=== PATIENT | male | born 1990 | race Two or more races ===

== ENCOUNTER 2020-12-07 14:03 | Emergency (ER) | payer SELFPAY ==
[~2020-12-07] VITALS: Ht 170.2 cm; Wt 108.9 kg
[2020-12-07] MEDS ORDERED: ONDANSETRON HCL 4 MG/2 ML VIAL IV ONE (14:30)
[2020-12-07] MEDS ORDERED: MORPHINE SULFATE 4 MG/ML SYR/VIAL IV ONE (14:30)
[2020-12-07] MEDS ORDERED: HYDROmorphone HCL 2 MG/ML VL IV ONE (16:00)
[2020-12-07 16:17] LABS: Hematocrit 52.8 % (41.0-53.0); Hemoglobin 17.7 g/dL (13.5-17.5); Mean Corpuscular Hemoglobin 30.6 pg (28.0-32.0); Mean Corpuscular Hgb Conc. 33.5 g/dL (32.0-36.0); Mean Corpuscular Volume 91.3 fL (80.0-100.0); Platelet Count (auto) 268 10^3/uL (140-450); Red Blood Cells 5.78 10^6/uL (4.5-5.90); Red Cell Distribution Width 13.6 % (11.8-14.3); White Blood Cell 28.7 10^3/uL (4.4-10.8)
[2020-12-07 16:20] LABS: Basophils % (manual) 0 (0.0-2.0); Blast Cells 0; Eosinophils % (manual) 0 (0-7); Metamyelocytes % 0; Myelocytes % 0; Promyelocytes % 0; Reactive Lymphocytes 0
[2020-12-07 16:33] LABS: Albumin 3.8 g/dL (3.4-5.0); Calcium 8.3 mg/dL (8.5-10.1); Potassium 4.9 mmol/L (3.5-5.1)
[2020-12-07 16:34] LABS: INR 1.04 (0.9-1.15); Partial Thromboplastin Time 23.6 sec (23.0-31.2)
[2020-12-07 16:37] LABS: BUN/Creatinine Ratio 9.6; Bilirubin, Total 1.5 mg/dL (0.2-1.0); Total Protein 7.3 g/dL (6.4-8.2)
[2020-12-07 16:41] VITALS: BP 127/80
[2020-12-07 16:46] LABS: Band Neutrophils % (manual) 13; Lymphocytes % (manual) 6 (10.0-50.0); Monocytes % (manual) 7 (0-12)
== END 2020-12-07 16:59 | disposition short-term general hospital (02) ==
LOC: ER 14:03 → EDBD 14:03 → ER 16:59
DX: S32.10XA Unspecified fracture of sacrum, initial encounter for closed fracture (principal); S32.9XXA Fracture of unspecified parts of lumbosacral spine and pelvis, initial encounter for closed fracture; S62.101A Fracture of unspecified carpal bone, right wrist, initial encounter for closed fracture; S30.0XXA Contusion of lower back and pelvis, initial encounter; V29.9XXA Motorcycle rider (driver) (passenger) injured in unspecified traffic accident, initial encounter; Y93.89 Activity, other specified; Y92.89 Other specified places as the place of occurrence of the external cause; Y99.8 Other external cause status
CPT/HCPCS: 36415; 70450; 71250; 72125; 72192; 73110; 74176; 80053; 85007; 85027; 85610; 85730; 96374; 96375; 99285; J1170; J2270; J2405

== ENCOUNTER 2023-11-07 19:46 | Emergency (ER) | payer MEDICAID ==
[~2023-11-07] VITALS: Ht 180.3 cm; Wt 129.0 kg
[2023-11-07] MEDS ORDERED: CEPH500C PO (21:59)
[2023-11-07] MEDS ORDERED: CLIN1CAP70 PO (21:59)
[2023-11-07] MEDS ORDERED: IBUP-1456 PO (21:59)
[2023-11-07 22:00] VITALS: BP 140/75; PULSE 100; RESP 16; TEMP 98; O2SAT 98
[2023-11-07] MEDS: methylPREDNISolone SOD SUCC 125 MG/2 ML VL IV ONE (22:19)
[2023-11-07] MEDS: KETOROLAC TROMETH 30 MG/ML 1ML VIAL IV ONE (22:19)
[2023-11-07] MEDS: cefTRIAXone 1GM/50ML D5W 50 ML IV ONE (22:28)
[2023-11-07] MEDS: CLINDAMYCIN 900MG IV 50 ML IV ONE (22:46)
== END 2023-11-07 23:23 | disposition home or self-care (01) ==
LOC: ER 19:46
DX: L03.012 Cellulitis of left finger (principal); Z90.49 Acquired absence of other specified parts of digestive tract; Z79.1 Long term (current) use of non-steroidal anti-inflammatories (NSAID); Z79.2 Long term (current) use of antibiotics; Z79.899 Other long term (current) drug therapy
CPT/HCPCS: 73130; 96365; 96367; 96375; 99284; J0696; J1885; J2930; J3490

== ENCOUNTER 2024-04-16 20:34 | Emergency (ER) | payer MEDICAID ==
[~2024-04-16] VITALS: Ht 180.3 cm; Wt 112.7 kg
[~2024-04-16 20:34] MED LIST: CEPH500C PO; CLIN1CAP70 PO; IBUP-1456 PO
[2024-04-16] MEDS ORDERED: CLIN1CAP70 PO (22:15)
[2024-04-16] MEDS ORDERED: IBUP-1455 PO (22:15)
[2024-04-16 23:06] VITALS: BP 142/99; PULSE 97; RESP 14; TEMP 97.8; O2SAT 95
== END 2024-04-16 23:08 | disposition home or self-care (01) ==
LOC: ER 20:34
DX: L08.89 Other specified local infections of the skin and subcutaneous tissue (principal); B95.8 Unspecified staphylococcus as the cause of diseases classified elsewhere; F15.90 Other stimulant use, unspecified, uncomplicated; Z98.890 Other specified postprocedural states; Z79.899 Other long term (current) drug therapy

== ENCOUNTER 2024-08-04 16:03 | Emergency (ER) | payer MEDICAID ==
[~2024-08-04] VITALS: Ht 180.3 cm; Wt 113.2 kg
[~2024-08-04 16:03] MED LIST changes: +IBUP-1455 PO
[2024-08-04 17:24] LABS: Urine Bacteria None Seen /hpf (None Seen)
--- NOTE | 2024-08-04 17:52 | DVH ---
ULTRASOUND OF SCROTUM AND CONTENTS. INDICATION: LEFT SIDED SWELLING COMPARISON: None TECHNIQUE: Multiple real-time grayscale sonographic and color and duplex Doppler images of the scrotu m and its contents were obtained. FINDINGS: The right testicle measures 3.9 x 2.4 x 3.1 cm. The left testicle measures 4.2 x 2.7 x 3.3 cm. Both testicles demonstrate homogeneous echotexture without evidence of focal lesions. The right epididymis measures 1.0 cm. The left epididymis measures 1.9 cm. Subsequent color and duplex Doppler interrogation of the testes demonstrated symmetric normal vascula r flow to both testicles. Increased vascularity to the left epididymis and left testicle. Septated complex small left hydrocele. IMPRESSION: Findings are suspicious for left orchitis/ epididymitis. Small septated complex left hydrocele; likely infected.
[2024-08-04 18:10] LABS: Urine Blood Negative /uL (Negative); Urine Clarity Clear (Clear); Urine Color Light-Yellow (Yellow); Urine Protein, UAD Negative (Negative); Urine Specific Gravity 1.006 (1.001-1.035); Urine Urobilinogen Normal (Negative); Urine WBC 39 /hpf (0 - 3); Urine pH 5.5 (5.0-9.0)
--- NOTE | 2024-08-04 19:03 | ED.PDOC ---
History of Present Illness HPI Comments 33 y/o M presents with c/o left-testicular swelling and pain, today. Patient reports unprovoked onset of pain 6x days ago and noticing swelling 5x days ago. He comments on symptoms worsening since. He endorses on no further relevant or pertinent Hx, such as recent injuries or strenuous activities. He denies having any penile pain, hematuria, fever, chills, or other associated symptoms or modifiers at this time. Chief Complaint: Testicle Pain Time Seen by MD: 18:00 Primary Care Provider: none Reviewed Notes: Nurses Notes, Medications, Allergies Allergies: Coded Allergies: NO KNOWN ALLERGIES (Unverified , 12/07/20) Home Meds Active Scripts Clindamycin Hcl (Clindamycin Hcl) 300 Mg Cap, 1 CAP PO TID for 7 Days, #21 CAP Prov:EMILY PENN 04/16/24 Ibuprofen Micronized (Ibuprofen) 800 Mg Tab, 800 MG PO TID PRN, #40 TAB Prov:EMILY PENN 04/16/24 Clindamycin Hcl (Clindamycin Hcl) 300 Mg Cap, 1 CAP PO TID for 7 Days, #21 CAP 0 Refills Prov:ROGELIO OLIVER 11/07/23 Ibuprofen (Ibuprofen) 800 Mg Tab, 1 TAB PO TID PRN, #30 TAB 0 Refills Prov:ROGELIO OLIVER 11/07/23 Cephalexin Monohydrate (Cephalexin) 500 Mg Cap, 1 CAP PO BID for 7 Days, #14 CAP 0 Refills Prov:ROGELIO OLIVER 11/07/23 Information Source: Patient Mode of Arrival: Ambulatory Severity: Moderate Timing: Days Duration: Since onset Prehospital treatment: None Past Medical History Past Medical History (Other): obesity Surgical History: Appendectomy Family History Family History: Family hx of stroke Social History Smoker: Non-Smoker Alcohol: Occasionally Drugs: Marijuana Lives In: Home Genitourinary: reports: testicle pain, testicle swelling All Other Systems: Reviewed and Negative (negative unless otherwise stated above or in HPI) Physical Exam General Appearance: No Apparent Distress, Obese HEENT: Normal ENT Inspection, Pharynx Normal, TMs Normal Neck: Full Range of Motion, Non-Tender, Normal, Normal Inspection Respiratory: Chest Non-Tender, Lungs Clear, No Accessory Muscle Use, No Respiratory Distress, Normal Breath Sounds Cardiovascular: No Edema, No JVD, No Murmur, No Gallop, Normal Peripheral Pulses, Regular Rate/Rhythm Breast Exam: Deferred Gastrointestinal: No Organomegaly, Non Tender, No Pulsatile Mass, Normal Bowel Sounds, Soft Genitalia: Other (left-scrotum erythematous and edema ) Pelvic: Deferred Rectal: Deferred Extremities: No calf tenderness, Normal capillary refill, Normal inspection, Normal range of motion, Non-tender, No pedal edema Musculoskeletal : Apperance: Normal Neurologic: Alert, cyber incident analyst II-XII nml as Tested, No Motor Deficits, Normal Affect, Normal Mood, No Sensory Deficits Cerebellar Function: Normal Reflexes: Normal Skin: Dry, Normal Color, Warm Lymphatic: No Adenopathy Was a procedure done? Was a procedure done?: No Differential Dx Considerations may include: hydrocele, cysts, dermatitis, testicular torsion, varicocele X-Ray, Labs, Meds, VS Vital Signs Date Time Temp Pulse Resp B/P (MAP) Pulse Ox O2 Delivery O2 Flow Rate FiO2 08/04/24 16:25 98.7 112 18 134/94 (107) 97 Lab Test 08/04/24 17:21 Range/Units Urine Color Light-yellow Yellow Urine Clarity Clear Clear Urine pH 5.5 5.0-9.0 Urine Specific [place] 1.006 1.001-1.035 Urine Protein Negative Negative Urine Ketones Negative Negative Urine Blood Negative Negative /uL Urine Nitrite Negative Negative Urine Bilirubin Negative Negative Urine Urobilinogen Normal Negative mg/dL Urine Leukocyte Esterase 2+ Negative /uL Urine RBC 1 0 - 3 /hpf Urine WBC 39 0 - 3 /hpf Urine Squamous Epithelial Cells None seen <5 /hpf Urine Bacteria None seen None Seen /hpf Urine Glucose Normal Normal mg/dL [facility] [id number] [place] [id number] Ph: [phone] DIAGNOSTIC IMAGING Diagnostic Imaging Report : [id number] Signed PATIENT: ROSALINE MENENDEZ ACCT: [id number] UNIT: [id number] : 1990 LOC: ER ROOM / BED: / AGE / SEX: 33 / M ADM STATUS: REG ER SERVICE 0000 ORDERING PHYSICIAN: EMILY PENN PROCEDURE(s): TESUS - TESTICULAR ULTRASOUND REASON: LEFT SIDED SWELLING ORDER NUMBER(s): [id number], ACCESSION NUMBER(s): [id number] ULTRASOUND OF SCROTUM AND CONTENTS. INDICATION: LEFT SIDED SWELLING COMPARISON: None TECHNIQUE: Multiple real-time grayscale sonographic and color and duplex Doppler images of the scrotum and its contents were obtained. FINDINGS: The right testicle measures 3.9 x 2.4 x 3.1 cm. The left testicle measures 4.2 x 2.7 x 3.3 cm. Both testicles demonstrate homogeneous echotexture without evidence of focal lesions. The right epididymis measures 1.0 cm. The left epididymis measures 1.9 cm. Subsequent color and duplex Doppler interrogation of the testes demonstrated symmetric normal vascular flow to both testicles. Increased vascularity to the left epididymis and left testicle. Septated complex small left hydrocele. IMPRESSION: Findings are suspicious for left orchitis/ epididymitis. Small septated complex left hydrocele; likely infected. ATED BY: LYLE NUNN MD DICTATED DATE/TIME: 08/04/241746 SIGNED BY: LYLE NUNN MD SIGNED DATE/TIME: 08/04/241746 CC: Time of 1ST Reevaluation: 18:30 Reevaluation 1ST: Unchanged Time of 2ND Reevaluation: 19:40 Reevaluation 2ND: Improved Patient Education/Counseling: Diagnosis, Treatment, Prognosis, Need For Follow Up Family Education/Counseling: No Family Present Additional Information pt has epididymitis and orchitis of the left testicle. due to his demographic, i will start antibiotic to cover for any STI. he does not have torsion or a mass. he is stable to follow up with his PCP Departure 1 Departure Time of Disposition: 19:39 Impression: Primary Impression: Orchitis Additional Impression: Epididymitis Disposition: 01 HOME / SELF CARE / HOMELESS Condition: Good Additional Instructions: follow up with your doctor in 2-3 days. feel free to return for anything concerning to you e-Prescriptions Ibuprofen Micronized (MOTRIN TABLET) 600 Mg Tb 600 MG PO TID PRN, #40 TAB *Black box warning-NSAIDS can increase risk of NE & hypertension, GI irritation, ulceration, bleed, perferation. Do not use post cardiac surgery. Use short duration/lowest effective dose. Prov: MEI LOW MD 08/04/24 Doxycycline Hyclate (DOXYCYCLINE HYCLATE) 100 Mg Tab 1 TAB PO BID, #20 TAB Prov: MEI LOW MD 08/04/24 Discharged With: Self Critical Care Note Critical Care Time?: No Stability Stability form required: No Heart Score Heart Score: Heart Score Response (Comments) Value History N/A 0 EKG N/A 0 Age N/A 0 Risk Factors N/A 0 Troponin N/A 0 Total 0 I personally scribed for MEI LOW MD ([email or web address]) on 08/04/24 at 19:03. Electronically submitted by Quinton Doan ([email or web address]). I personally scribed for MEI LOW MD ([email or web address]) on 08/04/24 at 19:35. Electronically submitted by Quinton Doan ([email or web address]). MEI LOW MD Aug 04, 2024 19:03
[2024-08-04] MEDS ORDERED: IBU600T PO (19:40)
[2024-08-04] MEDS ORDERED: DOXY-286 PO (19:40)
[2024-08-04] MEDS: KETOROLAC TROMETH 30 MG/ML 1ML VIAL IM ONE (19:43)
[2024-08-04] MEDS: cefTRIAXone W LIDOCAINE 1 GM IM IM ONE (19:44)
[2024-08-04 19:51] VITALS: BP 128/81; PULSE 104; RESP 97; TEMP 98.7; O2SAT 97
== END 2024-08-04 19:54 | disposition home or self-care (01) ==
LOC: ER 16:03
DX: N45.3 Epididymo-orchitis (principal); N43.3 Hydrocele, unspecified; F12.10 Cannabis abuse, uncomplicated; Z90.49 Acquired absence of other specified parts of digestive tract
CPT/HCPCS: 76870; 81001; 96372; 99285; J0696; J1885